=== PATIENT | male | born 1985 | race Caucasian/White ===

== ENCOUNTER 2018-04-07 22:03 | Emergency (ER) | payer OTHER ==
[~2018-04-07] VITALS: Ht 188 cm; Wt 108.9 kg
[~2018-04-07 22:03] MED LIST: Amoxicillin500 MG PO; HYDACE5 PO; IBUP800 PO; OXYACE5T PO; PENVK500 PO; PRED20 PO; RXERYTOPTH OP; RXHYDACE PO; RXPENVK250 PO; SULTRIDS PO; TERB24TC TOP
[2018-04-08] MEDS ORDERED: CEPH500 PO (00:11)
== END 2018-04-08 01:03 | disposition home or self-care (01) ==
LOC: ER 22:03
DX: M70.22 Olecranon bursitis, left elbow (principal); G43.909 Migraine, unspecified, not intractable, without status migrainosus
CPT/HCPCS: 73080; 99283

== ENCOUNTER 2020-01-31 02:42 | Emergency (ER) | payer OTHER ==
[~2020-01-31] VITALS: Ht 188 cm; Wt 106.6 kg
[~2020-01-31 02:42] MED LIST changes: +CEPH500 PO
[2020-01-31] MEDS ORDERED: CIPDEXSU (03:02)
[2020-01-31] MEDS ORDERED: Augmentin 500-1 EACH PO (03:45)
== END 2020-01-31 04:01 | disposition home or self-care (01) ==
LOC: ER 02:42
DX: H66.91 Otitis media, unspecified, right ear (principal)
CPT/HCPCS: 96372; 99282-25; A9270; J1885